=== PATIENT | female | born 1995 | race Caucasian/White ===

== ENCOUNTER 2020-10-06 18:10 | Outpatient (CLI) | payer OTHER ==
[~2020-10-06] VITALS: Ht 172.7 cm; Wt 96.5 kg
[2020-10-06 18:39] VITALS: BP 129/83
[2020-10-06] MEDS ORDERED: CALC500C15 PO (19:06)
[2020-10-06] MEDS ORDERED: PNV1TAB6 PO (19:06)
--- NOTE | 2020-10-06 19:52 | IPNPDOC ---
Text Note Date of Service The patient was seen on 10/06/20. NOTE 25 yo LMP 01/04/20 EDC 10/10/20 AT 39.4 WEEKS THOUGHT SROM . NO CONTRACTIONS NO BLEEDING [facility] NORMAL . GBS NEGATIVE. PHYSICAL EXAMINATIONS NO ACUTE DISTRESS . SF HEIGHT 40 CM VERTEX PRESENTATION. BOWEL SOUNDS ACTIVE. EXPLAINED SPECULUM EXAMINATION CONSENTED, STRILE EXAMINATION CLEAN VAGINA CERVIX POSTERIOR NO POOLING HAD INTERCOURSE 2 HOURS AGONITRAZINE POSITIVE. CERVICAL EXAMINATION POSTERIOR 1 CM 50 % -3 STATION. US VERTEX LIMB MOVEMENT NOTED KALA 11.49 SMALLEST POCKET VERTICAL 2.96 CM SLIDE EVALUATION NEGATIVE BV YEAST TRICHOMONAS . MANY SPERM NOTED . PLAN PRECAUTIONS , [facility] PROM LABOR BLEEDING WHEN TO CALL PROVIDER , DISCHARGED UNDELIVERED VS,Fishbone, I+O VS, Fishbone, I+O Vital Signs Date Time Temp Pulse Resp B/P (MAP) Pulse Ox O2 Delivery O2 Flow Rate FiO2 10/06/20 18:39 98.3 102 18 129/83 (98) Victoriano North MD Oct 06, 2020 19:52
== END 2020-10-06 19:45 | disposition home or self-care (01) ==
LOC: M LDO 18:10
PROVIDERS: ATTEND Obstetrics & Gynecology
DX: O26.893 Other specified pregnancy related conditions, third trimester (principal); Z3A.39 39 weeks gestation of pregnancy
CPT/HCPCS: 59025; 76815; G0378; G0463

== ENCOUNTER 2020-10-17 06:52 | Inpatient (IN) | payer OTHER ==
[~2020-10-17] VITALS: Ht 172.7 cm; Wt 97.9 kg
[2020-10-17] VITALS (28 sets, daily range): BP systolic 111–158; BP diastolic 56–104
[~2020-10-17 06:52] MED LIST: CALC500C15 PO; PNV1TAB6 PO
[2020-10-17] MEDS ORDERED: LR 1,000 ML IV SCH (08:55)
[2020-10-17] MEDS ORDERED: LACTATED RINGER'S 1000 ML IV STA (08:55)
[2020-10-17] MEDS ORDERED: PROMETHAZINE INJ 25 MG/ML VIAL (J2550) IV PRN (09:00)
[2020-10-17] MEDS ORDERED: miSOPROStol 25MCG 1/4 TABLET PV ONE (09:00)
[2020-10-17] MEDS ORDERED: BUTORPHANOL 2 MG/ML INJ (J0595) IV PRN (09:00)
--- NOTE | 2020-10-17 09:36 | HPEPDOC ---
Obstetrical History & Physical General Date of Admission Oct 17, 2020 at 06:52 History of Present Illness 25 yo at 41w0d with MARLENY of 10/10/2020 presents to L&D for IOL for postdates . She is feeling well with no concerns today. She denies contractions, leaking of fluid, vaginal bleeding, and reports positive movement. Chief Complaint: Induction of labor (for postdates ) Information Provided By: Patient Age: 25 : 1 Term: 0 Pre-term: 0 Abortions: 0 Livin Care Care: Good Care Dating Final EDC: Oct 10, 2020 Final EDC for Daily Update: Oct 10, 2020 Final EDC by: LMP, 1st trimester (US) LMP: January 04, 2020 1st Trimester Date: Mar 23, 2020 Weeks + Days: 11 (+4) Estimated Date of Confinement: Oct 10, 2020 EGA at Admission: 41 (+0) Antepartum Course Height (inches): 68 Pre- weight (lbs.): 171 Admission Weight (lbs.): 210 Change in Weight (lbs.): 41 Past Medical History Past Obstetrical History : Past Obstetrical History: [employer] History: History of STD Past Medical History Medical History Hx of chlamydia, Hx of marijuana use, Hx of right arm fracture Surgical History: Other (Right arm adjustment d/t right arm fracture) Family History Significant Family History: Cancer, Diabetes, Heart disease, Hypertension, Hyperlipidemia, Other (Arthritis) Social History Marital Status: Family situation: Spouse/partner home Psychosocial History: No pertinent psych hx * Smoker: non-smoker Alcohol: Denies Drugs: denies Abuse Violence Screening Have you been hit/kicked/slapp: No Have you been sexually assault: No Imunizations Tdap status: current Allergies Coded Allergies: No Known Allergies (Verified Allergy, Unknown, 10/06/20) Medications Scheduled Calcium Carbonate (Antacid) 200 Mg Tab.chew, 500 MG PO PRN Vit,Calc76/Iron/Folic (Pnv 29-1 Tablet) 1 Each Tablet, 1 TAB PO DAILY Physical Examination Physical Examination GENERAL: Alert and oriented times three. BREAST: . ABDOMEN: Gravid and non-tender to touch. FETUS: Is vertex (VTX) by sterile vaginal examination (SVE), fetus is vertex (VTX) by Kev. HEART RATE: Regular rate and rhythm. LUNGS: Clear to auscultation (CTA). EXTREMITIES: No edema. No clonus. Deep tendon reflexes (DTRs) + 2. Vital Signs/I&O Vital Signs Date Time Temp Pulse Resp B/P (MAP) Pulse Ox O2 Delivery O2 Flow Rate FiO2 10/17/20 07:24 98.2 103 18 121/74 (90) 98 Room Air Laboratory Data 24H LABS Laboratory Tests 2 10/17/20 07:06: Serology Scanned Report Hepatitis B Testing Pertinent Laboratoy Data Blood Type: O+ RBC Antibody Screen: Negative HIV: Negative Hepatitis B: Negative Rapid Plasma Reagin: Nonreactive Rubella: Immune Varicella: Immune Chlamydia/Gonorrhea: Negative Group B Streptococcus: Negative Steroid Therapy Steroid Therapy: No Vaginal Examination Dilation: 1cm Effacement: 30% Station: -3 Cervical Consistency: Medium Cervical Position: Posterior Presentation: Cephalic presentation Position: Vertex (occiput) Assessment Heart Rate (FHR): 145 Variability: Moderate Accelerations: Positive Decelerations: None Tocometer Contractions: Yes Frequency: other (occasional ) Multi-drug resistant Organism: No history of MDRO Assessment/Plan Assessment 25 yo at 41w0d with MARLENY of 10/10/2020 presents to L&D for IOL for postdates . She is feeling well with no concerns today. She denies contractions, leaking of fluid, vaginal bleeding, and reports positive movement. Plan Admit and orient. Top And Seat Cover Fitter and consent. Diet: clear liquids. Group B Streptococcus (GBS) negative. Labs and intravenous (IV) per unit protocol. Counseled on Pitocin and induction of labor (IOL). Lactated Ringers (LR): Bolus 1000 mL, then at 125 mL/hr. Will place cook balloon and cytotec for IOL Anticipate normal spontaneous delivery (). C-S as appropriate. Labor and Delivery Counseling Discussed risks of IOL, PPH, shoulder dystocia, and section if needed. Discussed IOL process, cook balloon, cytotec, and pitocin. All questions answered, her and her spouse have no further questions at this time. JOSEFINA POP CNM Oct 17, 2020 09:35
[2020-10-17 09:45] LABS: HEMATOCRIT 35.2 % (36.0-47.0); HEMOGLOBIN 11.9 g/dl (12.0-15.5); MEAN CORPUSCULAR HEMOGLOBIN 31.3 pg (27.0-33.0); MEAN CORPUSCULAR HGB CONC 33.8 g/dl (32.0-36.5); MEAN CORPUSCULAR VOLUME 92.6 fl (80.0-96.0); PLATELET COUNT, AUTOMATED 255 10^3/uL (150-450); WHITE BLOOD COUNT 8.1 10^3/uL (4.0-10.0)
--- NOTE | 2020-10-17 09:56 | IPNPDOC ---
Obstetrical Progress Note Date of Service Oct 17, 2020 Subjective 25 yo at 41w0d with MARLENY of 10/10/2020 admitted for IOL for postdates . She has supportive family at the bedside. Objective Vital Signs Date Time Temp Pulse Resp B/P (MAP) Pulse Ox O2 Delivery O2 Flow Rate FiO2 10/17/20 07:24 98.2 103 18 121/74 (90) 98 Room Air Cook balloon placed with 80/80 at 0947 without difficulty with cytotec 25 mcg placed vaginally between the balloons on top of the cervix. Patient tolerated procedure well. Assessment Heart Rate (FHR): 145 Variability: Moderate Accelerations: Present Decelerations: None Tocometer Contractions: Yes Frequency: other (occasional) Assessment and Plan Age: 25 : 1 Term: 0 Pre-term: 0 Abortions: 0 Livin EGA at Admission: 41 (+0) Weeks & Days 41w0d Status: Reassuring Group B Streptococcus: Negative Anticipate: Vaginal Delivery JOSEFINA POP CNM Oct 17, 2020 09:55
[2020-10-17] MEDS ORDERED: miSOPROStol 25MCG 1/4 TABLET PV SCH (14:00)
[2020-10-17] MEDS ORDERED: OXYTOCIN DRIP 30 UNITS in IV 1 EA IV SCH (18:30)
--- NOTE | 2020-10-17 19:38 | IPNPDOC ---
Text Note Date of Service The patient was seen on 10/17/20. NOTE 10/17/2020 1730 hours . PATIENT 25 YO at 41 weeks hx to date Cytotec x 2 25 mg Liao's catheter 80/80 contractions 4 4 minutes apart. PLAN REMOVE LIAO'S CATHETER ASSESSMENT 1 CM POSTERIOR 50-60% EFFACED BULGING MEMBRANES -3 STATION NOT WELL APPLIED TO CERVIX. PLAN OF CARE IS DISCUSSED WITH PATIENT HAVE SUPPER. SHOWER EVALUATE CO NTRACTION PATTERN AND WHEN APPROPRIATE PITOCIN AUGMENTATION. PAIN MANAGEMENT DISCUSSED RE EPIDURAL FOR RELAXATION ,PERINEAL RELAXATION AND ABILITY FOR USING PITOCIN . PRESENTLY CATEGORY 1 STRIP SAFE TO PROCEED . 30 MINUTE DISCUSSION ALL QUESTIONS ANSWERED. VS,Fishbone, I+O VS, Fishbone, I+O Laboratory Tests 10/17/20 09:30 Vital Signs Date Time Temp Pulse Resp B/P (MAP) Pulse Ox O2 Delivery O2 Flow Rate FiO2 10/17/20 17:38 98.3 122 18 131/82 (98) 10/17/20 07:24 98 Room Air Victoriano North MD Oct 17, 2020 19:38
[2020-10-17] MEDS ORDERED: FENTANYL 2MCG/ML ROPIVACAINE 0.2% IN 0.9% NACL 100ML IVBAG As Ordered ONE (20:42)
[2020-10-17] MEDS ORDERED: diphenhydrAMINE 50MG/ML VIAL (J1200) IV PRN (22:00)
[2020-10-17] MEDS ORDERED: EPIDURAL/PCA KEYS XX PRN (22:00)
[2020-10-17] MEDS ORDERED: NALOXONE INJ 0.4MG/1ML VIAL (J2310 PER 1MG) IV PRN (22:00)
[2020-10-17] MEDS ORDERED: FENTANYL/ROPIVACAINE/NACL BAG 100 ML EPIDURAL SCH (22:00)
[2020-10-17] MEDS ORDERED: EPIDURAL COMMENT XX SCH (22:00)
[2020-10-17] MEDS ORDERED: REFRIGERATOR IV KEYS XX PRN (22:00)
[2020-10-17] MEDS ORDERED: ePHEDrine SULFATE 25 MG/5 ML(5MG/ML) SYRINGE IV PRN (22:00)
[2020-10-17] MEDS ORDERED: ONDANSETRON 4MG/2ML VIAL IV PRN (22:00)
[2020-10-17] MEDS ORDERED: LACTATED RINGER'S 1000 ML IV PRN (22:00)
[2020-10-17] MEDS ORDERED: OXYTOCIN 30 UNITS IN 0.9% NaCl 500ML IV BAG (J2590) As Ordered ONE (23:07)
--- NOTE | 2020-10-17 23:49 | IPNPDOC ---
Text Note Date of Service The patient was seen on 10/17/20. NOTE 10/17/20 2345 pm assessment post epidural. cervix 80% effaced 1 cm tight post erior arom clear liquor contractions moderate Pitocin started safe to proceed VS,Fishbone, I+O VS, Fishbone, I+O Laboratory Tests 10/17/20 09:30 Vital Signs Date Time Temp Pulse Resp B/P (MAP) Pulse Ox O2 Delivery O2 Flow Rate FiO2 10/17/20 22:19 100 130/89 (103) 10/17/20 20:25 97.8 18 10/17/20 07:24 98 Room Air Victoriano North MD Oct 17, 2020 23:49
[2020-10-18] VITALS (25 sets, daily range): BP systolic 105–159; BP diastolic 54–97
[2020-10-18 05:46] LABS: CORD GAS ABE A -5.9; CORD GAS O2 SAT A 81.7 %; CORD GAS PCO2 A 32.5 mmHg; CORD GAS PH A 7.362 UNITS; CORD GAS PO2 A 35.5 mmHg; CORD GAS SBC A 19.3 MEQ/L
[2020-10-18 05:49] LABS: CORD GAS ABE V -5.5; CORD GAS HCO3 V 17.7 MEQ/L; CORD GAS O2 SAT V 81.9 %; CORD GAS PH V 7.389 UNITS; CORD GAS PO2 V 35.3 mmHg; CORD GAS SBC V 19.7 MEQ/L; CORD GAS TCO2 V 18.6 MEQ/L
[2020-10-18] MEDS ORDERED: LR 1,000 ML IV SCH (05:57)
[2020-10-18] MEDS ORDERED: MOM 30ML SUSPENSION UDC PO PRN (06:00)
[2020-10-18] MEDS ORDERED: DOCUSATE SODIUM 100MG CAPSULE PO PRN (06:00)
[2020-10-18] MEDS ORDERED: METHYLERGONOVINE MALEATE 0.2 MG TAB PO PRN (06:00)
[2020-10-18] MEDS ORDERED: ANUSOL HC CREAM 30GM TOP PRN (06:00)
[2020-10-18] MEDS ORDERED: OXYTOCIN INJ 10 UNITS/ML VIAL (J2590) IV ONE (06:00)
[2020-10-18] MEDS ORDERED: ACETAMINOPHEN TAB 650MG DOSE (2X325MG) PO PRN (06:00)
[2020-10-18] MEDS ORDERED: ACETAMINOPHEN 500 MG TAB PO PRN (06:00)
[2020-10-18] MEDS ORDERED: MEASLES,MUMPS,RUBELLA VACCINE INJ (MMR-II) (90707) SC SCH (06:00)
[2020-10-18] MEDS ORDERED: BENZOCAINE 20% HEMORRHOIDAL OINTMENT 28GM TUBE TOP PRN (06:00)
[2020-10-18] MEDS ORDERED: RHOGAM 300 MCG (1500 IU) INJ (J2790) IM SCH (06:00)
[2020-10-18] MEDS ORDERED: IBUPROFEN 600MG TAB PO PRN (06:00)
[2020-10-18] MEDS ORDERED: OXYTOCIN DRIP 30 UNITS in IV 1 EA IV ONE (06:00)
[2020-10-18] MEDS ORDERED: LIDOCAINE 1% MDV 20ML VIAL As Ordered ONE (06:20)
[2020-10-18] MEDS: PRENATAL VITAMINS CHEWABLE TABLET PO SCH (08:55)
--- NOTE | 2020-10-18 14:06 | DN ---
DELIVERY NOTE DATE OF DELIVERY: 10/18/2020 TIME OF : GENDER: Female APGARS: 8 and 9 LACERATIONS: Vaginal. ANESTHESIA: Epidural. ESTIMATED BLOOD LOSS: COUNTS: DESCRIPTION OF DELIVERY: This lady is a 25-year-old 1, para 0 admitted for induction of labor for postdate gestation at 41 weeks gestation. With epidural in place at full dilatation had a spontaneous vaginal delivery of a live female infant weighing 6 pounds 9 ounces (2970 grams). Apgars at 8 and 9 at one and five minutes respectively. Arterial pH 7.36, base excess -5.9; venous pH 7.38, base excess -5.5. She had an extremely short cord less than 6 inches, three vessels. Spontaneous vaginal delivery of placenta intact. She had a perineum that was intact, but had some vaginal abrasions and lacerations, which we noticed prior to delivery secondary to bulb Cook's catheter in place in the vagina. This was repaired as best with 2-0 Vicryl and J339 and ice diaper was applied. The uterus contracted well down on Pitocin. The patient and baby tolerating procedure well.
[2020-10-18] MEDS: IBUPROFEN 800 MG TAB PO PRN (19:49)
[2020-10-19 05:59] VITALS: BP 101/57
[2020-10-19 07:21] LABS: HEMATOCRIT 29.3 % (36.0-47.0); HEMOGLOBIN 9.6 g/dl (12.0-15.5); MEAN CORPUSCULAR HEMOGLOBIN 31.5 pg (27.0-33.0); MEAN CORPUSCULAR HGB CONC 32.8 g/dl (32.0-36.5); MEAN CORPUSCULAR VOLUME 96.1 fl (80.0-96.0); PLATELET COUNT, AUTOMATED 201 10^3/uL (150-450); RED BLOOD COUNT 3.05 10^6/uL (4.00-5.40); WHITE BLOOD COUNT 10.8 10^3/uL (4.0-10.0)
--- NOTE | 2020-10-19 07:27 | IPNPDOC ---
Progress Note Date of Service: Oct 19, 2020 Day#: 1 Progress Note SUBJECT: Shabana is a 25yo s/p , doing well day # 1. She has been ambulating, voiding spontaneously without issue and tolerating regular diet. Breast feeding with nipple shield due to flat nipples. Reports lochia is like a normal period. Reports pain is well-controlled with motrin but is unaware of perineal treatments for pain. OBJECTIVE: VITAL SIGNS: Within normal limits, afebrile. Alert and oriented times three. Abdomen: Fundus firm at U-2. Soft, NTTP. ASSESSMENT: Shabana is a 25yo s/p , doing well day # 1. Vitals within normal limits, afebrile, hemodynamically stable with no evidence of infection. PLAN: 1. Discharge to home tomorrow 2. Tylenol and Motrin for pain, dibucaine and witch kyler to perineum 3. Encourage breast feeding with support. 4. Encourage ambulation OOB and regular diet as tolerated 5. Routine PP visit in 6 weeks in clinic. VS, I&O, 24H, Fishbone Vital Signs/I&O Vital Signs Date Time Temp Pulse Resp B/P (MAP) Pulse Ox O2 Delivery O2 Flow Rate FiO2 10/19/20 05:59 96.9 81 18 101/57 (72) 10/18/20 18:00 18 10/17/20 07:24 Room Air I&O- Last 24 Hours up to 6 AM 10/19/20 06:00 Intake Total 1500 ml Output Total 600 ml Balance 900 ml Laboratory Data 24H LABS Laboratory Tests 2 10/19/20 06:26: Nucleated Red Blood Cells % (auto) 0.0 CBC/BMP Laboratory Tests 10/19/20 06:26 ZAIN TONEY DO Oct 19, 2020 07:27
[2020-10-19] MEDS: PRENATAL VITAMINS CHEWABLE TABLET PO SCH (09:29)
[2020-10-19] MEDS: IBUPROFEN 800 MG TAB PO PRN (09:32)
[2020-10-19 12:24] VITALS: BP 118/72
[2020-10-19 18:00] VITALS: BP 102/56
[2020-10-20] MEDS: IBUPROFEN 800 MG TAB PO PRN (05:26)
[2020-10-20 05:43] VITALS: BP 120/70
[2020-10-20] MEDS ORDERED: IBUP80TA PO (07:26)
[2020-10-20] MEDS ORDERED: ACET-683 PO (07:26)
--- NOTE | 2020-10-20 07:28 | DS.PDOC ---
Discharge Summary General Date of Admission Oct 17, 2020 at 06:52 Date of Discharge Oct 20, 2020 Discharge Summary HOSPITAL COURSE: Ms. Mac is a 25 yo G1 now P1 who underwent an uncomplicated on 18Oct2020 after being admitted for an IOL for late term on 17Oct2020. Her course has been unremarkable. On her day of discharge she met all appropriate discharge criteria. She was ambulating, voiding, tolerating a regular diet, and had minimal lochia. DISCHARGE MEDICATIONS: Please see below. ALLERGIES: Please see below. PHYSICAL EXAMINATION ON DISCHARGE: VITAL SIGNS: Please see below. GENERAL: AAOX3, NAD ABDOMINAL EXAMINATION: Fundus firm at U-2. No fundal tenderness EXTREMITIES: No edema PSYCHIATRIC EXAMINATION: Affect appropriate LABORATORY DATA: Please see below. ACTIVITY: Pelvic rest for 6 weeks DIET: Regular DISCHARGE PLAN: Discharge home DISPOSITION: Discharge home on 20Oct2020. DISCHARGE INSTRUCTIONS: 1. Nothing in the vagina for 6 weeks ITEMS TO FOLLOWUP ON ON OUTPATIENT: 1. Call to schedule a visit for 6 weeks post delivery DISCHARGE CONDITION: Stable. TIME SPENT ON DISCHARGE: Greater than 20 minutes. Shen Irene DO Vital Signs/I&Os Vital Signs Date Time Temp Pulse Resp B/P (MAP) Pulse Ox O2 Delivery O2 Flow Rate FiO2 10/20/20 05:43 97.7 81 16 120/70 (87) 99 Room Air Discharge Medications Scheduled Calcium Carbonate (Antacid) 200 Mg Tab.chew, 500 MG PO PRN, (Reported) Vit,Calc76/Iron/Folic (Pnv 29-1 Tablet) 1 Each Tablet, 1 TAB PO DAILY, (Reported) Scheduled PRN Acetaminophen (Acetaminophen) 500 Mg Tablet, 1,000 MG PO Q6HP PRN for PAIN LEVEL 6-10 Ibuprofen (Ibuprofen) 800 Mg Tablet, 800 MG PO Q8HP PRN for PAIN LEVEL 6-10 Allergies Coded Allergies: No Known Allergies (Verified Allergy, Unknown, 10/06/20) SHEN IRENE DO Oct 20, 2020 07:28
[2020-10-20] MEDS: PRENATAL VITAMINS CHEWABLE TABLET PO SCH (08:13)
== END 2020-10-20 11:30 | disposition home or self-care (01) | DRG 807 ==
LOC: M LDI 06:52 → M OBS 10-18 09:08
PROC: 3E0P7GC Introduction of Other Therapeutic Substance into Female Reproductive, Via Natural or Artificial Opening (ICD-10-PCS; 2020-10-17)
PROC: 10907ZC Drainage of Amniotic Fluid, Therapeutic from Products of Conception, Via Natural or Artificial Opening (ICD-10-PCS; 2020-10-17)
PROC: 10E0XZZ Delivery of Products of Conception, External Approach (ICD-10-PCS; principal; 2020-10-18)
PROC: 0HQ9XZZ Repair Perineum Skin, External Approach (ICD-10-PCS; 2020-10-18)
DX: O48.0 Post-term pregnancy (principal); Z37.0 Single live birth; Z3A.41 41 weeks gestation of pregnancy; O69.3XX0 Labor and delivery complicated by short cord, not applicable or unspecified; O70.0 First degree perineal laceration during delivery